=== PATIENT | male | born 2005 | race Caucasian/White ===

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

== ENCOUNTER 2023-09-25 19:22 | Emergency (ER) | payer OTHER ==
[~2023-09-25] VITALS: Ht 182.8 cm; Wt 93.0 kg
== END 2023-09-25 19:48 | disposition home or self-care (01) ==
LOC: ED 19:22
DX: J06.9 Acute upper respiratory infection, unspecified (principal)

== ENCOUNTER 2024-04-02 17:32 | Emergency (ER) | payer OTHER ==
[~2024-04-02] VITALS: Ht 182.8 cm; Wt 89.4 kg
[2024-04-02] MEDS ORDERED: PREDNISONE20 M1 PO (18:17)
[2024-04-02] MEDS ORDERED: EYE DROPS15 ML OP (18:17)
[2024-04-02] MEDS ORDERED: VALTREX1000 MG PO (18:17)
[2024-04-04] MEDS ORDERED: VISINE RED EYE H8 ML OP (14:25)
== END 2024-04-02 18:13 | disposition home or self-care (01) ==
LOC: ED 17:32
DX: G51.0 Bell's palsy (principal)

== ENCOUNTER 2024-04-18 00:36 | Emergency (ER) | payer OTHER ==
[~2024-04-18] VITALS: Ht 182.8 cm; Wt 87.1 kg
[~2024-04-18 00:36] MED LIST changes: +EYE DROPS15 ML OP; +PREDNISONE20 M1 PO; +VALTREX1000 MG PO; +VISINE RED EYE H8 ML OP
[2024-04-18] MEDS ORDERED: Doxycycline Hyclate 100 MG CAP PO ONE (01:05)
[2024-04-18] MEDS ORDERED: VIBRAMYCIN100 MG PO (01:09)
== END 2024-04-18 01:16 | disposition home or self-care (01) ==
LOC: ED 00:36
DX: A69.20 Lyme disease, unspecified (principal); Z87.891 Personal history of nicotine dependence